=== PATIENT | male | born 1975 | race American Indian/Alaskan Native ===

== ENCOUNTER 2017-11-03 11:54 | Emergency (ER) | payer SELFPAY ==
[2017-11-03 12:05] VITALS: TEMP 97; O2SAT 99
[2017-11-03 12:06] VITALS: BMI 14.8
[2017-11-03 12:16] VITALS: RESP 16
--- NOTE | 2017-11-03 12:25 | ED PDOC ---
HPI: Abdomen Time Seen by Provider: 11/03/17 12:24 Chief Complaint (Nursing): Abdominal Pain Chief Complaint (Provider): abd pain History Per: Patient Additional Complaint(s): 41-year-old female presents to emergency room for evaluation of generalized abdominal pain and headache ongoing for 2 months. Patient also states about one week ago he developed chest pain with no associated shortness of breath or dyspnea on exertion. Patient states he tried taking TheraFlu but this did not help his symptoms. He describes headache as pressure sensation to top of head. He has taken Aleve and Tylenol which has provided minimal relief of headache. He denies any dizziness or vision changes. No known fever or chills. Patient denies recent travel. PMD: [facility] Past Medical History Reviewed: Historical Data, Nursing Documentation, Vital Signs Vital Signs: Last Vital Signs Temp 97 F L 11/03/17 12:04 Pulse 83 11/03/17 12:04 Resp 16 11/03/17 12:13 BP 131/79 11/03/17 12:04 Pulse Ox 99 11/03/17 15:48 - Medical History PMH: No Chronic Diseases - Surgical History Surgical History: No Surg Hx - Family History Family History: States: No Known Family Hx - Living Arrangements Living Arrangements: Alone - Social History Current smoker - smoking cessation education provided: No Alcohol: None Drugs: Denies - Home Medications Home Medications: Ambulatory Orders Medication Instructions Recorded Naproxen [Naprosyn] 500 mg PO BID #20 tab 11/03/17 - Allergies Allergies/Adverse Reactions: Allergies Allergy/AdvReac Type Severity Reaction Status Date / Time No Known Allergies Allergy Verified 11/03/17 12:12 Review of Systems ROS Statement: Except As Marked, All Systems Reviewed And Found Negative Constitutional: Negative for: Fever, Chills Eyes: Negative for: Vision Change Cardiovascular: Positive for: Chest Pain (intermittent for 1 week). Negative for: Palpitations, Light Headedness Respiratory: Negative for: Cough, Shortness of Breath, SOB with Exertion Gastrointestinal: Positive for: Nausea (intermittent for 2 months), Abdominal Pain (intermittent for 2 months). Negative for: Vomiting, Diarrhea, Constipation, Melena, Hematochezia, Hematemesis, Rectal Pain Genitourinary Male: Negative for: Dysuria Neurological: Positive for: Headache (intermittent for 2 months). Negative for : Weakness, Numbness, Incoordination, Change in Speech, Confusion, Seizures, Altered Mental Status, Dizziness Physical Exam - Reviewed Nursing Documentation Reviewed: Yes Vital Signs Reviewed: Yes - Physical Exam Appears: Positive for: Well, Non-toxic, No Acute Distress Skin: Negative for: Rash Eye Exam: Positive for: Normal appearance, EOMI, PERRL Neck: Positive for: Normal Cardiovascular/Chest: Positive for: Regular Rate, Rhythm Respiratory: Positive for: Normal Breath Sounds. Negative for: Wheezing, Respiratory Distress Gastrointestinal/Abdominal: Positive for: Soft. Negative for: Tenderness, Distended, Guarding Back: Negative for: L CVA Tenderness, R CVA Tenderness Extremity: Positive for: Normal ROM Neurologic/Psych: Positive for: Alert, clinical field specialist II-XII (grossly intact), Oriented, Gait (steady). Negative for: Motor/Sensory Deficits, Aphasia, Facial Droop - Laboratory Results Result Diagrams: 11/03/17 13:40 11/03/17 13:40 Urine dip results: Negative for: Leukocyte Esterase, Blood, Nitrate, Ketones, Glucose, Bilirubin, Protein - ECG Interpretation Of ECG: NSR 69 bpm, no acute finding, reviewed by PA and ED attending O2 Sat by Pulse Oximetry: 99 Pulse Ox Interpretation: Normal - Other Rad CXR X-Ray: Interpreted by Me, Viewed By Me X-Ray Interpretation: no acute finding CT head X-Ray: Read By Radiologist X-Ray Interpretation: no acute finding Medical Decision Making Medical Decision Makin41 y/o male with chest pain, headache and abd pain Plan: EKG CXR CBC CMP Trop Urine dip PO motrin PO tylenol IVF Patient reports improvement of symptoms after meds given. He is aware of all diagnostic testing results, all questions answered. Patient was given prescription for Naprosyn. He was referred to clinic for follow up. Disposition - Clinical Impression Clinical Impression: Abdominal pain, Chest pain, Headache - Patient ED Disposition Is Patient to be Admitted: No Counseled Patient/Family Regarding: Studies Performed, Diagnosis, Need For Followup, Rx Given - Disposition Referrals: [facility] [Outside] Disposition: Routine/Home Disposition Time: 17:33 Condition: STABLE Additional Instructions: Take prescription meds as directed as needed for pain. Follow-up with clinic in 2-3 days. Return to emergency room any time if acutely worse. Prescriptions: Naproxen [Naprosyn] 500 mg PO BID #20 tab Instructions: Stomach Ache and Stomach Upset, Headache, Adult (DC), Chest Pain Forms: [employer] (Korean) Results - Lab Results Lab Results: 11/03/17 11/03/17 13:40 13:40 WBC 3.9 L RBC 5.31 Hgb 16.3 Hct 48.6 MCV 91.5 MCH 30.8 MCHC 33.6 RDW 13.6 Plt Count 184 MPV 9.4 Neut % (Auto) 45.4 L Lymph % (Auto) 43.3 H Cowley % (Auto) 7.9 Eos % (Auto) 2.5 Baso % (Auto) 0.9 Neut # (Auto) 1.8 Lymph # (Auto) 1.7 Cowley # (Auto) 0.3 Eos # (Auto) 0.1 Baso # (Auto) 0.0 Sodium 143 Potassium 4.6 Chloride 104 Carbon Dioxide 26 Anion Gap 18 BUN 13 Creatinine 1.1 Est GFR ( Amer) > 60 Est GFR (Non-Af Amer) > 60 Random Glucose 97 Calcium 9.7 Total Bilirubin 1.0 AST 30 ALT 35 Alkaline Phosphatase 71 Troponin I < 0.0120 Total Protein 8.2 Albumin 4.5 Globulin 3.6 Albumin/Globulin Ratio 1.2 Lipase 109
[2017-11-03] MEDS ORDERED: Sodium Chloride 0.9% 1,000 ML IV STA (13:29)
[2017-11-03 13:53] LABS: BASO % 0.9 % (0.0-2.0); EOS # 0.1 K/uL (0.0-0.7); EOS % 2.5 % (0.0-4.0); HEMOGLOBIN 16.3 g/dL (12.0-18.0); LYMPH # 1.7 K/uL (1.0-4.3); LYMPH % 43.3 % (20.0-40.0); MEAN CELL VOLUME 91.5 fl (80.0-94.0); MEAN CORPUSCULAR HEMOGLOBIN 30.8 pg (27.0-31.0); MEAN CORPUSCULAR HGB CONC 33.6 g/dL (33.0-37.0); MEAN PLATELET VOLUME 9.4 fl (7.2-11.7); MONO # 0.3 K/uL (0.0-0.8); MONO % 7.9 % (0.0-10.0); NEUT # 1.8 K/uL (1.8-7.0); NEUT % 45.4 % (50.0-75.0); NRBC % 0.2 % (0.0-0.0); RBC 5.31 Mil/uL (4.40-5.90); RED CELL DISTRIBUTION WIDTH 13.6 % (11.5-14.5); WHITE BLOOD COUNT 3.9 K/uL (4.8-10.8)
[2017-11-03 13:59] LABS: ALB/GLOB RATIO 1.2 (1.0-2.1); ALBUMIN 4.5 g/dL (3.5-5.0); ALT/SGPT 35 U/L (21-72); AST/SGOT 30 U/L (17-59); BLOOD UREA NITROGEN 13 mg/dl (9-20); CALCIUM 9.7 mg/dL (8.4-10.2); GFR AFRICAN-AMERICAN > 60; GFR NON-AFRICAN AMERICAN > 60; LIPASE 109 U/L (23-300)
--- NOTE | 2017-11-03 13:59 | RAD ---
HISTORY: chest pain COMPARISON: No prior. FINDINGS: LUNGS: No active pulmonary disease. PLEURA: No significant pleural effusion identified, no pneumothorax apparent. CARDIOVASCULAR: Normal. OSSEOUS STRUCTURES: No significant abnormalities. VISUALIZED UPPER ABDOMEN: Normal. OTHER FINDINGS: None. IMPRESSION: No active disease.
--- NOTE | 2017-11-03 16:33 | CT ---
PROCEDURE: CT HEAD WITHOUT CONTRAST. HISTORY: headache COMPARISON: None available. TECHNIQUE: Axial computed tomography images were obtained through the head/brain without intravenous contrast. Coronal and sagittal reconstructed images. Radiation dose: Total exam DLP = 830.67 mGy-cm. This CT exam was performed using one or more of the following dose reduction techniques: Automated exposure control, adjustment of the mA and/or kV according to patient size, and/or use of iterative reconstruction technique. FINDINGS: HEMORRHAGE: No intracranial hemorrhage. BRAIN: No mass effect or edema. No atrophy or chronic microvascular ischemic changes. VENTRICLES: Unremarkable. No hydrocephalus. CALVARIUM: Unremarkable. PARANASAL SINUSES: Unremarkable as visualized. No significant inflammatory changes. MASTOID AIR CELLS: Unremarkable as visualized. No inflammatory changes. OTHER FINDINGS: None. IMPRESSION: No acute intracranial abnormalities. No significant findings to account for the clinical presentation.
[2017-11-03 18:03] VITALS: BP 128/80; PULSE 79
--- NOTE | 2017-11-04 17:35 | CARD ---
APPROVED REPORT EKG Measurement Heart [id number] <Conclusion> Normal sinus rhythm Early repolarization Normal ECG
== END 2017-11-03 17:55 | disposition home or self-care (01) ==
LOC: H.ER 11:54
DX: R10.9 Unspecified abdominal pain (principal); R07.89 Other chest pain; R51 Headache
CPT/HCPCS: 70450; 71045; 80053; 83690; 84484; 85025; 93005; 99283; J7040